=== PATIENT | male | born 1945 | race Caucasian/White ===

== ENCOUNTER 2022-09-19 09:07 | Emergency (ER) | payer MEDICARE, BC, OTHER ==
[~2022-09-19] VITALS: Ht 170.2 cm; Wt 74.8 kg
[2022-09-19] MEDS ORDERED: ULTRAM 50MG50 MG PO (11:43)
[2022-09-19 12:02] VITALS: BP 136/79
== END 2022-09-19 12:04 | disposition home or self-care (01) ==
LOC: ER 09:14
DX: S42.032A Displaced fracture of lateral end of left clavicle, initial encounter for closed fracture (principal); W06.XXXA Fall from bed, initial encounter; Y93.84 Activity, sleeping; Y92.89 Other specified places as the place of occurrence of the external cause; I10 Essential (primary) hypertension; Z86.73 Personal history of transient ischemic attack (TIA), and cerebral infarction without residual deficits
CPT/HCPCS: 70450; 71045; 72125; 99283